=== PATIENT | male | born 1965 | race Caucasian/White ===

== ENCOUNTER 2017-03-07 16:49 | Emergency (ER) | payer OTHER ==
[2017-03-07 17:30] VITALS: BP 144/72
--- NOTE | 2017-03-07 17:59 | UC ---
Lower Extremity/Ankle HPI - HPI Summary HPI Summary: Multiple stings to R medial ankle 3 days ago, have gotten very swollen and blistered since they occurred. Flying to [place] tomorrow, concerned about sx. - History of Current Complaint Chief Complaint: [place] Stated Complaint: WASP STING ON ANKLE,SWELLING Time Seen by Provider: 03/07/17 17:37 Hx Obtained From: Patient Onset/Duration: Sudden Onset Severity Initially: Mild Severity Currently: Moderate Aggravating Factor(s): Nothing Alleviating Factor(s): Rest, Elevation, Other - topical triamcinolone cream Able to Bear Weight: Yes - Allergies/Home Medications Allergies/Adverse Reactions: Allergies Allergy/AdvReac Type Severity Reaction Status Date / Time No Known Allergies Allergy Verified 03/07/17 17:27 PMH/Surg Hx/FS Hx/Imm Hx Previously Healthy: Yes - Surgical History Surgical History: None - Family History Known Family History: Negative: Blood Disorder - Social History Occupation: Employed Full-time Alcohol Use: Rare Substance Use Type: None, Marijuana Smoking Status (MU): Never Smoked Tobacco Review of Systems Constitutional: Negative Skin: Rash - red area with blistering on R ankle Eyes: Negative ENT: Negative Respiratory: Negative Cardiovascular: Negative Gastrointestinal: Negative Genitourinary: Negative Motor: Negative Neurovascular: Negative Musculoskeletal: Negative Neurological: Negative Psychological: Negative All Other Systems Reviewed And Are Negative: Yes Physical Exam Triage Information Reviewed: Yes Appearance: Well-Appearing, No Pain Distress, Well-Nourished Vital Signs: Initial Vital Signs Temp 99.3 F 03/07/17 17:27 Pulse 51 03/07/17 17:27 Resp 16 03/07/17 17:27 BP 144/72 03/07/17 17:27 Pulse Ox 100 03/07/17 17:27 Vital Signs Reviewed: Yes Eye Exam: Normal Eyes: Positive: Conjunctiva Clear ENT Exam: Normal ENT: Positive: Normal ENT inspection, Hearing grossly normal, Pharynx normal, TMs normal Dental Exam: Normal Neck exam: Normal Neck: Positive: Supple, Nontender, No Lymphadenopathy Respiratory Exam: Normal Respiratory: Positive: Chest non-tender, Lungs clear, Normal breath sounds, No respiratory distress, No accessory muscle use Cardiovascular Exam: Normal Cardiovascular: Positive: RRR, No Murmur Musculoskeletal Exam: Normal Musculoskeletal: Positive: ROM Intact Neurological Exam: Normal Neurological: Positive: Alert Psychological Exam: Normal Skin Exam: Other - large red area on R medial ankle with overlying vesicles, no streaking, foul drainage, or tenderness Lower Extremity Course/Dx - Differential Dx/Diagnosis Provider Diagnoses: insect stings to R ankle, local reaction Discharge - Discharge Plan Condition: Stable Disposition: HOME Prescriptions: predniSONE TAB* [Deltasone TAB*] 50 mg PO DAILY #3 tab Patient Education Materials: Insect Bite or Sting (ED) Referrals: Brayan Francisco MD [Primary Care Provider] - Additional Instructions: I expect your symptoms to improve significantly with the steroid treatment. After it is done, the skin should slowly heal and get back to a normal color over the course of a week or two. If you have increasing redness, pain, a streak up your leg, or other signs of worsening, please return here or see your primary care provider for follow-up care.
== END 2017-03-07 17:56 | disposition home or self-care (01) ==
LOC: UCEAST 16:49
DX: T63.461A Toxic effect of venom of wasps, accidental (unintentional), initial encounter (principal); T78.40XA Allergy, unspecified, initial encounter; Y92.9 Unspecified place or not applicable
CPT/HCPCS: 99212; G0463

== ENCOUNTER 2018-01-21 16:45 | Emergency (ER) | payer OTHER ==
--- NOTE | 2018-01-21 17:51 | UC ---
Bite Injury/Animal HPI - HPI Summary HPI Summary: 52 yo gentleman - dog bite approx 10am this am. Index R. Irrigated at the time. Rabies animal utd. Tet utd. Bandaged today, and covered. Presents here d/t hasn't stopped bleeding. Some dysesthesia, no weakness. Bite was "provoked," in that the animal was coming out of anesthesia. Does not think teeth part(s) embedded. Pt is R handed. - History of Current Complaint Stated Complaint: DOG BITE ON FINGER Time Seen by Provider: 01/21/18 17:49 Hx Obtained From: Patient - Allergies/Home Medications Allergies/Adverse Reactions: Allergies Allergy/AdvReac Type Severity Reaction Status Date / Time No Known Allergies Allergy Verified 03/07/17 17:27 PMH/Surg Hx/FS Hx/Imm Hx Previously Healthy: Yes - Surgical History Surgical History: None - Family History Known Family History: Negative: Blood Disorder - Social History Alcohol Use: Rare Substance Use Type: None, Marijuana Smoking Status (MU): Never Smoked Tobacco Review of Systems Constitutional: Negative Skin: Other - see hpi Eyes: Negative ENT: Negative Respiratory: Negative Cardiovascular: Negative Gastrointestinal: Negative Genitourinary: Negative Motor: Other - see hpi Neurovascular: Other - see hpi Musculoskeletal: Other: - see hpi Neurological: Negative Psychological: Negative All Other Systems Reviewed And Are Negative: Yes Physical Exam Triage Information Reviewed: Yes Appearance: Well-Nourished Vital Signs Reviewed: Yes Eye Exam: Normal - grossly normal ENT Exam: Normal - grossly normal Neck exam: Normal - grossly normal Respiratory Exam: Normal Cardiovascular Exam: Normal Musculoskeletal Exam: Other - R index finger approx 1.5cm lac volar dip. + full thickness. Bleeding contolled with pressure. Several other smaller lacs ( d/t bite), none requiring repair. Distal sens LT present, subj mild dysesthesia. CR good. Able to move finger / hand. Without cellulitis or external evidence infection at this time. Neurological Exam: Normal - [place] [facility] [place] Psychological Exam: Normal Skin Exam: Other - [place] [facility] [place]. Bite Injury Course/Dx - Course Course Of Treatment: Last tetanus booster 2 months ago. Animal's rabies immun utd. Procedure note -. Usual sterile technique. 2% lidocaine digital block 2cc. Repaired loose suture 4.0 Prolene # 3 sutures. Tolerated well. Bacitracin / bandage. Reviewed f/u instructions. Questions as posed answered to the best of my ability. - Differential Dx/Diagnosis Provider Diagnoses: Dog bite R hand (index finger). Laceration repair Discharge - Sign-Out/Discharge Documenting (check all that apply): Discharge/Admit/Transfer - Discharge Plan Condition: Stable Disposition: HOME Prescriptions: Amoxicillin/Clavulanate TAB* [Augmentin TAB 875*] 875 mg PO BID #19 tab Patient Education Materials: Animal Bite (ED), Care For Your Stitches (ED) Referrals: Brayan Francisco MD [Primary Care Provider] - Additional Instructions: Wound check in 2 days. Avoid getting wet for 12 hours. Wound care - ok to shower after 24 hours, pat dry then air dry 30 min. Dressing change 2x daily. THIN layer bacitracin, dry bandage / guaze. Avoid constriction. Suture removal 10 - 14 days. Seek medical attention for any worse or new problems. - Billing Disposition and Condition Condition: STABLE Disposition: Home
[2018-01-21 17:55] VITALS: BP 117/72
[2018-01-21] MEDS ORDERED: Lidocaine 2% PF * 5 ML VIAL IV ONE (18:09)
[2018-01-21] MEDS ORDERED: Amoxicillin/Clavulanate TAB* 875 MG PO ONE (18:11)
[2018-01-21] MEDS ORDERED: ceFAZolin 500 MG VIAL(*) 500 MG VIAL IM ONE (18:14)
== END 2018-01-21 19:25 | disposition home or self-care (01) ==
LOC: UCEAST 16:45
DX: S61.210A Laceration without foreign body of right index finger without damage to nail, initial encounter (principal); W54.0XXA Bitten by dog, initial encounter; Y93.K9 Activity, other involving animal care; Y92.89 Other specified places as the place of occurrence of the external cause; Y99.0 Civilian activity done for income or pay
CPT/HCPCS: 12001; 96372; 99212; A9270-GY; G0463; J0690